=== PATIENT | female | born 1930 | race Caucasian/White ===

== ENCOUNTER 2017-07-28 13:42 | Emergency (ER) | payer MEDICARE ==
[~2017-07-28] VITALS: Ht 157.5 cm; Wt 53.0 kg
[~2017-07-28 13:42] MED LIST: BENA25TA8 PO; CALCTAB32 OR; LACTCAP7 PO; MISC1TAB9 PO; RANI150T PO; VANC1000P PO; VANC1CAP7 PO; VISI0.053 OP
[2017-07-28 13:47] VITALS: BP 174/74; PULSE 71; RESP 16; TEMP 98; O2SAT 97
[2017-07-28] MEDS ORDERED: SODIUM CHLOR 0.9% 1000 ML INJ 1,000 ML IV SCH (14:33)
[2017-07-28 14:38] VITALS: BP 162/64; PULSE 72; RESP 18; O2SAT 97
[2017-07-28] MEDS ORDERED: SODIUM CHLORIDE 0.9% FLUSH 10 ML FLUSH IV FLUSH PRN (14:45)
--- NOTE | 2017-07-28 14:49 | PD ---
HPI Chief Complaint: GI Complaint Time Seen by Provider: 14:23 Travel History International Travel<30 days: No Contact w/Intl Traveler<30days: No Traveled to known affect area: No History of Present Illness HPI Patient was seen and examined in the presence of a nurse at all times This is an 87 year old female who presents for diarrhea. She states she has had 3 days of diarrhea. She states that the stool is dark. She has been taking Pepto. She has mild crampy periumbilical and LLQ abdominal pain. No fever, chills, vomiting. No urinary complaints. She is not on anticoagulation. Symptoms are mild in severity. Onset gradual. She states that she has only had one episode of diarrhea today after eating rice last night and today. She had been having 4 episodes of diarrhea per day the last few days. No known aggravating factors. PFSH Past Medical History Narrative Medical HLD Cancer: Yes (BASAL CELL REMOVED) Cardiovascular Problems: No Diabetes: No Diminished Hearing: No Endocrine: No Gastrointestinal Disorders: Yes (DIVERTICULOSIS) GERD: Yes Genitourinary: No Hepatitis: No Hiatal Hernia: No Hypertension: No Immune Disorder: No Musculoskeletal: Yes (ARTHRITIS, BACK AND NECK. osteoporosis) Neurologic: No Psychiatric: No Respiratory: Yes (COPD) Immunizations Current: Yes Thyroid Disease: No Influenza Vaccination: Yes ?: Not Menopausal: Yes Past Surgical History Eye Surgery: Yes (bilat cataract and right retina ) Oral Surgery: Yes (TONSILLECTOMY) Pacemaker: No Tonsillectomy: Yes Other Surgery: Yes (BASAL CELL CA REMOVED) Social History Alcohol Use: No Tobacco Use: No Substance Use: No Allergies-Medications (Allergen,Severity, Reaction): Coded Allergies: Sulfa (Sulfonamide Antibiotics) (Unverified Allergy, Severe, Rash, 07/28/17 ) ibuprofen (Unverified Allergy, Severe, IRREGULAR HEARTBEAT, 07/28/17) penicillin G (Unverified Allergy, Severe, Denies, 07/28/17) metronidazole (Unverified Allergy, Intermediate, Itching, 07/28/17) cortisone (Unverified Adverse Reaction, Intermediate, Denies, 07/28/17) Reported Meds & Prescriptions Reported Meds & Active Scripts Active Reported Preservision Areds (Multiple Vitamins W/ Minerals) 1 Tab 1 Tab PO BID Calcium 600 with Vitamin D (Calcium Carbonate-Cholecalciferol) 600-400 mg-Unit Tab 1 Tab PO DAILY Probiotic (Saccharomyces Boulardii) 250 Mg Cap 250 Mg PO DAILY Coq-10 (Coenzyme Q10 (Ubidecarenone)) 30 Mg Cap 1 Cap PO DAILY Pravastatin 40 Mg Tab 40 Mg PO DAILY Prilosec (Omeprazole Magnesium) 20 Mg Tab 1 Tab P-ARTICULR DAILY Review of Systems Except as stated in HPI: all other systems reviewed are Neg Physical Exam Narrative GENERAL: Alert, well nourished, well appearing patient resting on the bed in no acute distress. Vital Signs reviewed SKIN: Focused skin assessment warm/dry. HEAD: Atraumatic. Normocephalic. EYES: Pupils equal and round. No scleral icterus. No injection or drainage. ENT: No nasal bleeding or discharge. Mucous membranes pink and moist. NECK: Trachea midline. No JVD. Spontaneous, painless full range of motion with no meningismus CARDIOVASCULAR: Regular rate and rhythm. No murmur appreciated. Extremities warm and well perfused with bounding peripheral pulses RESPIRATORY: No accessory muscle use. Clear to auscultation. Breath sounds equal bilaterally. Breathing easily and speaking in full sentences GASTROINTESTINAL: Abdomen soft, non-tender, nondistended. Normal bowel sounds. No rigid, rebound, guarding. No tenderness at McBurney's point. Negative Houston sign. Rectal exam reveals nonthrombosed external hemorrhoids. There is dark brown stool in vault. This is heme negative. The internal QC was okay. MUSCULOSKELETAL: No obvious deformities. No clubbing. No cyanosis. No edema. Compartments are soft NEUROLOGICAL: Awake and alert. No obvious cranial nerve deficits. Motor grossly within normal limits. Normal speech. Sensation intact. Normal gait PSYCHIATRIC: Appropriate mood and affect; insight and judgment normal. Data Data Last Documented VS Vital Signs Date Time Temp Pulse Resp B/P (MAP) Pulse Ox O2 Delivery O2 Flow Rate FiO2 07/28/17 16:11 64 17 120/66 (84) 97 Room Air 07/28/17 13:47 98.0 Orders Orders Complete Blood Count With Diff (07/28/17 14:33) Comprehensive Metabolic Panel (07/28/17 14:33) Lipase (07/28/17 14:33) Prothrombin Time / Inr (Pt) (07/28/17 14:33) Act Partial Throm Time (Ptt) (07/28/17 14:33) Urinalysis - C+S If Indicated (07/28/17 14:33) Ct Abd/Pel W Iv Contrast(Rout) (07/28/17 14:33) Iv Access Insert/Monitor (07/28/17 14:33) Ecg Monitoring (07/28/17 14:33) Oximetry (07/28/17 14:33) Sodium Chlor 0.9% 1000 Ml Inj (Ns 1000 M (07/28/17 14:33) Sodium Chloride 0.9% Flush (Ns Flush) (07/28/17 14:45) Iohexol 350 Inj (Omnipaque 350 Inj) (07/28/17 15:55) Urine Culture (07/28/17 16:00) Labs Laboratory Tests Test 07/28/17 14:45 07/28/17 16:00 White Blood Count 4.8 TH/MM3 Red Blood Count 4.40 MIL/MM3 Hemoglobin 14.3 GM/DL Hematocrit 43.1 % Mean Corpuscular Volume 98.0 FL Mean Corpuscular Hemoglobin 32.4 PG Mean Corpuscular Hemoglobin Concent 33.1 % Red Cell Distribution Width 12.7 % Platelet Count 125 TH/MM3 Mean Platelet Volume 7.0 FL Neutrophils (%) (Auto) 52.2 % Lymphocytes (%) (Auto) 37.2 % Monocytes (%) (Auto) 7.4 % Eosinophils (%) (Auto) 2.3 % Basophils (%) (Auto) 0.9 % Neutrophils # (Auto) 2.5 TH/MM3 Lymphocytes # (Auto) 1.8 TH/MM3 Monocytes # (Auto) 0.4 TH/MM3 Eosinophils # (Auto) 0.1 TH/MM3 Basophils # (Auto) 0.0 TH/MM3 CBC Comment DIFF FINAL Differential Comment Prothrombin Time 10.6 SEC Prothromb Time International Ratio 1.0 RATIO Activated Partial Thromboplast Time 22.7 SEC Blood Urea Nitrogen 10 MG/DL Creatinine 0.71 MG/DL Random Glucose 101 MG/DL Total Protein 6.3 GM/DL Albumin 3.5 GM/DL Calcium Level 8.5 MG/DL Alkaline Phosphatase 102 U/L Aspartate Amino Transf (AST/SGOT) 21 U/L Alanine Aminotransferase (ALT/SGPT) 15 U/L Total Bilirubin 0.6 MG/DL Sodium Level 140 MEQ/L Potassium Level 3.7 MEQ/L Chloride Level 105 MEQ/L Carbon Dioxide Level 31.7 MEQ/L Anion Gap 3 MEQ/L Estimat Glomerular Filtration Rate 78 ML/MIN Lipase 177 U/L Urine Color YELLOW Urine Turbidity CLEAR Urine pH 6.5 Urine Specific [place] 1.005 Urine Protein NEG mg/dL Urine Glucose (UA) NEG mg/dL Urine Ketones NEG mg/dL Urine Occult Blood NEG Urine Nitrite NEG Urine Bilirubin NEG Urine Leukocyte Esterase TRACE Urine WBC 0-2 /hpf Urine WBC Clumps OCC Urine Squamous Epithelial Cells 0-5 /hpf Microscopic Urinalysis Comment CULTURE INDICATED MDM Medical Decision Making Medical Screen Exam Complete: Yes Emergency Medical Condition: Yes Medical Record Reviewed: Yes Interpretation(s) CT Abd/Pel W IV Contrast(Rout) EXAM DATE/TIME: 07/28/2017 15:45 [facility] COMPARISON: No previous studies available for comparison. INDICATIONS : Left lower quadrant pain and diarrhea x 3 days. IV CONTRAST: 85 cc Omnipaque 350 (iohexol) IV ORAL CONTRAST: No oral contrast ingested. RADIATION DOSE: 5.88 CTDIvol (mGy) MEDICAL HISTORY : Chronic obstructive pulmonary disease. Diverticulosis. SURGICAL HISTORY : None. ENCOUNTER: Initial ACUITY: 3 days PAIN SCALE: 5/10 LOCATION: Left lower quadrant TECHNIQUE: Volumetric scanning of the abdomen and pelvis was performed. Using automated exposure control and adjustment of the mA and/or kV according to patient size, radiation dose was kept as low as reasonably achievable to obtain optimal diagnostic quality images. DICOM format image data is available electronically for review and comparison. FINDINGS: LOWER LUNGS: The visualized lower lungs are clear. LIVER: Homogeneous density without lesion. There is no dilation of the biliary tree. No calcified gallstones. SPLEEN: Normal size without lesion. PANCREAS: Within normal limits. KIDNEYS: Normal in size and shape. There is no masses or stones. Bilateral renal cysts are identified. A 5 cm cyst is identified in the upper pole the right kidney. Smaller peripelvic cysts are identified in the right kidney. There is a 4 cm cyst in the upper pole of the left kidney. ADRENAL GLANDS: Within normal limits. VASCULAR: There is no aortic aneurysm. BOWEL/MESENTERY: Number diverticula are seen throughout the descending and sigmoid colon. There are no active pericolonic inflammatory changes. ABDOMINAL WALL: Within normal limits. RETROPERITONEUM: There is no lymphadenopathy. BLADDER: No wall thickening or mass. REPRODUCTIVE: Trace amount of fluid is identified in the pelvis. Uterus and adnexa are otherwise unremarkable. INGUINAL: There is no lymphadenopathy or hernia. MUSCULOSKELETAL: Left hip replacement is noted. CONCLUSION: 1. Uncomplicated colonic diverticulosis. 2. Trace free fluid in the pelvis. 3. Bilateral renal cysts. 4. Otherwise unremarkable exam with no findings to suggest an acute process. 5. Status post left hip replacement. Laboratory Tests Test 07/28/17 14:45 07/28/17 16:00 White Blood Count 4.8 TH/MM3 Red Blood Count 4.40 MIL/MM3 Hemoglobin 14.3 GM/DL Hematocrit 43.1 % Mean Corpuscular Volume 98.0 FL Mean Corpuscular Hemoglobin 32.4 PG Mean Corpuscular Hemoglobin Concent 33.1 % Red Cell Distribution Width 12.7 % Platelet Count 125 TH/MM3 Mean Platelet Volume 7.0 FL Neutrophils (%) (Auto) 52.2 % Lymphocytes (%) (Auto) 37.2 % Monocytes (%) (Auto) 7.4 % Eosinophils (%) (Auto) 2.3 % Basophils (%) (Auto) 0.9 % Neutrophils # (Auto) 2.5 TH/MM3 Lymphocytes # (Auto) 1.8 TH/MM3 Monocytes # (Auto) 0.4 TH/MM3 Eosinophils # (Auto) 0.1 TH/MM3 Basophils # (Auto) 0.0 TH/MM3 CBC Comment DIFF FINAL Differential Comment Prothrombin Time 10.6 SEC Prothromb Time International Ratio 1.0 RATIO Activated Partial Thromboplast Time 22.7 SEC Blood Urea Nitrogen 10 MG/DL Creatinine 0.71 MG/DL Random Glucose 101 MG/DL Total Protein 6.3 GM/DL Albumin 3.5 GM/DL Calcium Level 8.5 MG/DL Alkaline Phosphatase 102 U/L Aspartate Amino Transf (AST/SGOT) 21 U/L Alanine Aminotransferase (ALT/SGPT) 15 U/L Total Bilirubin 0.6 MG/DL Sodium Level 140 MEQ/L Potassium Level 3.7 MEQ/L Chloride Level 105 MEQ/L Carbon Dioxide Level 31.7 MEQ/L Anion Gap 3 MEQ/L Estimat Glomerular Filtration Rate 78 ML/MIN Lipase 177 U/L Urine Color YELLOW Urine Turbidity CLEAR Urine pH 6.5 Urine Specific [place] 1.005 Urine Protein NEG mg/dL Urine Glucose (UA) NEG mg/dL Urine Ketones NEG mg/dL Urine Occult Blood NEG Urine Nitrite NEG Urine Bilirubin NEG Urine Leukocyte Esterase TRACE Urine WBC 0-2 /hpf Urine WBC Clumps OCC Urine Squamous Epithelial Cells 0-5 /hpf Microscopic Urinalysis Comment CULTURE INDICATED Differential Diagnosis Diverticulitis, gastroenteritis, colitis, GI bleed, UTI Narrative Course IV access was established. Labs, imaging were performed. Patient was given IV fluids. She is heme-negative on exam. She is actually only had one episode of diarrhea today which is improved from the last few days. Her abdominal exam is soft, nontender, nondistended. She has not had any urinary urgency, frequency, dysuria. I reviewed the results of the workup with her. Given her history of clostridium difficile, I am hesitant to prescribe antibiotics based on her urinalysis. We will plan to await urine culture. If her urine culture is suggestive of true UTI, she will need to be called and treated with antibiotics. Patient is in agreement with this plan. We also discussed plan for discharge with supportive care, BRAT/bland diet, Bentyl for abdominal cramping and close outpatient follow-up with primary physician. Patient understands the importance of close outpatient follow-up. She understands she may require further testing and treatment as an outpatient. She understands strict return indications. She is comfortable with this plan and eager to go home. Diagnosis Primary Impression: Acute diarrhea Referrals: Primary Care Physician 1 day Patient Instructions: Acute Diarrhea (GEN), General Instructions Additional Instructions: Drink plenty of fluids to stay well-hydrated. Use Bentyl as needed for abdominal cramping. Eat a bland diet such as bananas, rice, applesauce, toast. Follow up closely with primary physician within the next 1-4 days. Return with worsening symptoms. Med/Other Pt SpecificInfo: Prescription(s) given Scripts Dicyclomine (Bentyl) 10 Mg Cap 10 MG PO TID Y for ABDOMINAL CRAMPING, #12 CAP 0 Refills Prov: Lexie Viera MD 07/28/17 Disposition: 01 DISCHARGE HOME Condition: Stable Lexie Viera MD Jul 28, 2017 14:49
[2017-07-28 14:55] LABS: AUTOMATED NEUTROPHIL # 2.5 TH/MM3 (1.8-7.7); BASOPHIL % 0.9 % (0.0-2.0); EOSINOPHIL # 0.1 TH/MM3 (0-0.4); EOSINOPHIL % 2.3 % (0.0-4.0); HEMATOCRIT 43.1 % (35.0-46.0); HEMOGLOBIN 14.3 GM/DL (11.6-15.3); LYMPH % 37.2 % (9.0-44.0); LYMPHOCYTE # 1.8 TH/MM3 (1.0-4.8); MEAN CORPUSCULAR HEMOGLOBIN 32.4 PG (27.0-34.0); MEAN CORPUSCULAR HGB CONC 33.1 % (32.0-36.0); MONO % 7.4 % (0.0-8.0); MONOCYTE # 0.4 TH/MM3 (0-0.9); NEUT % 52.2 % (16.0-70.0); PLATELET COUNT 125 TH/MM3 (150-450); RED CELL DISTRIBUTION WIDTH 12.7 % (11.6-17.2); WHITE BLOOD COUNT 4.8 TH/MM3 (4.0-11.0)
[2017-07-28] MEDS ORDERED: SACC1CAP3 PO (14:58)
[2017-07-28] MEDS ORDERED: PRAV40TA2 PO (14:58)
[2017-07-28] MEDS ORDERED: COQ-30CA2 PO (14:58)
[2017-07-28] MEDS ORDERED: OCUVTAB4 PO (14:58)
[2017-07-28] MEDS ORDERED: CALC1TAB87 PO (14:58)
[2017-07-28] MEDS ORDERED: PRIL20TA2 P-ARTICULR (14:58)
[2017-07-28 15:04] LABS: CHLORIDE 105 MEQ/L (98-107); SODIUM (NA) 140 MEQ/L (136-145)
[2017-07-28 15:07] LABS: CALCIUM 8.5 MG/DL (8.5-10.1)
[2017-07-28 15:08] LABS: ALBUMIN 3.5 GM/DL (3.4-5.0); BICARBONATE 31.7 MEQ/L (21.0-32.0); BLOOD UREA NITROGEN 10 MG/DL (7-18); GLUCOSE,RANDOM 101 MG/DL (74-106)
[2017-07-28 15:11] LABS: AST (GOT) 21 U/L (15-37); CREATININE 0.71 MG/DL (0.50-1.00); GLOMERULAR FILTRATION RATE 78 ML/MIN (>89)
[2017-07-28 15:12] LABS: ALT (GPT) 15 U/L (10-53); TOTAL BILIRUBIN ADULT 0.6 MG/DL (0.2-1.0); TOTAL PROTEIN 6.3 GM/DL (6.4-8.2)
[2017-07-28 15:14] LABS: ALKALINE PHOSPHATASE 102 U/L (45-117)
[2017-07-28 15:18] LABS: PROTHROMBIN TIME - PATIENT 10.6 SEC (9.8-11.6)
[2017-07-28 15:25] VITALS: BP 161/80; PULSE 70; O2SAT 95
[2017-07-28] MEDS ORDERED: IOHEXOL 350 MG/ML 10 ML VIAL (for RAD DIAG) IVCONTRAST ONE (15:55)
[2017-07-28 16:11] VITALS: BP 120/66; PULSE 64; RESP 17; O2SAT 97
[2017-07-28 16:11] LABS: BILIRUBIN, URINE NEG (NEG); BLOOD, URINE NEG (NEG); GLUCOSE,URINE NEG (NEG); KETONE, URINE NEG (NEG); NITRITE,URINE NEG (NEG); PH, URINE 6.5 (5.0-8.5); URINE LEUKOCYTE ESTERASE TRACE (NEG)
[2017-07-28 16:20] LABS: URINE COLOR YELLOW (YELLW/STRAW)
[2017-07-28 16:22] LABS: SQUAMOUS EPITHELIAL CELL URINE 0-5 /hpf (0-5); WBC, URINE 0-2 /hpf (0-5); WHITE BLOOD CELL CLUMPS OCC
--- NOTE | 2017-07-28 16:54 | RADRPT ---
EXAM DATE/TIME: 07/28/2017 15:45 [facility] COMPARISON: No previous studies available for comparison. INDICATIONS : Left lower quadrant pain and diarrhea x 3 days. IV CONTRAST: 85 cc Omnipaque 350 (iohexol) IV ORAL CONTRAST: No oral contrast ingested. RADIATION DOSE: 5.88 CTDIvol (mGy) MEDICAL HISTORY : Chronic obstructive pulmonary disease. Diverticulosis. SURGICAL HISTORY : None. ENCOUNTER: Initial ACUITY: 3 days PAIN SCALE: 5/10 LOCATION: Left lower quadrant TECHNIQUE: Volumetric scanning of the abdomen and pelvis was performed. Using automated exposure control and ad justment of the mA and/or kV according to patient size, radiation dose was kept as low as reasonably achievable to obtain optimal diagnostic quality images. DICOM format image data is available electro nically for review and comparison. FINDINGS: LOWER LUNGS: The visualized lower lungs are clear. LIVER: Homogeneous density without lesion. There is no dilation of the biliary tree. No calcified gallston es. SPLEEN: Normal size without lesion. PANCREAS: Within normal limits. KIDNEYS: Normal in size and shape. There is no masses or stones. Bilateral renal cysts are identified. A 5 cm cyst is identified in the upper pole the right kidney. Smaller peripelvic cysts are identified in th e right kidney. There is a 4 cm cyst in the upper pole of the left kidney. ADRENAL GLANDS: Within normal limits. VASCULAR: There is no aortic aneurysm. BOWEL/MESENTERY: Number diverticula are seen throughout the descending and sigmoid colon. There are no active pericolo pily inflammatory changes. ABDOMINAL WALL: Within normal limits. RETROPERITONEUM: There is no lymphadenopathy. BLADDER: No wall thickening or mass. REPRODUCTIVE: Trace amount of fluid is identified in the pelvis. Uterus and adnexa are otherwise unremarkable. INGUINAL: There is no lymphadenopathy or hernia. MUSCULOSKELETAL: Left hip replacement is noted. CONCLUSION: 1. Uncomplicated colonic diverticulosis. 2. Trace free fluid in the pelvis. 3. Bilateral renal cysts. 4. Otherwise unremarkable exam with no findings to suggest an acute process. 5. Status post left hip replacement. Balaji Rodriguez MD on July 28, 2017 at 16:45 Board Certified Radiologist. This report was verified electronically.
[2017-07-28] MEDS ORDERED: DICY10 PO (17:13)
[2017-07-28 17:26] VITALS: BP 155/74
== END 2017-07-28 17:27 | disposition home or self-care (01) ==
LOC: PHED 13:42
DX: K57.30 Diverticulosis of large intestine without perforation or abscess without bleeding (principal); N28.1 Cyst of kidney, acquired; K21.9 Gastro-esophageal reflux disease without esophagitis; J44.9 Chronic obstructive pulmonary disease, unspecified; M81.0 Age-related osteoporosis without current pathological fracture; M19.90 Unspecified osteoarthritis, unspecified site; Z88.2 Allergy status to sulfonamides; Z88.6 Allergy status to analgesic agent; Z88.0 Allergy status to penicillin; Z79.899 Other long term (current) drug therapy
CPT/HCPCS: 74177; 80053; 81001; 83690; 85025; 85610; 85730; 87086; 96360; 96361; 99284; J7030; Q9967